=== PATIENT | female | born 1955 | race Caucasian/White ===

== ENCOUNTER → 2023-01-03 | Outpatient (CLI) | payer BC | END | disposition home or self-care (01) | LOC: RAH 15:34 | PROVIDERS: ATTEND Family Medicine | DX: Z12.31 Encounter for screening mammogram for malignant neoplasm of breast (principal) | CPT/HCPCS: 77067 ==

== ENCOUNTER → 2024-05-16 | Outpatient (CLI) | payer BC ==
--- NOTE | 2024-05-16 11:36 | HMCIMG ---
Exam Type: MAMMO SCREENING BILATERAL Clinical Information: ROUTINE SCREENING Comparison: January 03, 2023 Technique: Mammogram with CAD was performed with CC and MLO projections. CAD shows no worrisome regions. FINDINGS: The breasts are heterogeneously dense, which may obscure small masses. No dominant mass or suspicious microcalcification identified. There is no nipple retraction or skin thickening. Benign-appearing calcifications are seen. CAD shows no worrisome regions. IMPRESSION: 1. No mammographic signs of malignancy. 2. Routine follow-up recommended. CATEGORY 2: BENIGN FINDINGS Note: A negative x-ray should not delay biopsy if a dominant or clinically suspicious mass is present, since 8-10% of cancers are not identified by mammography. Dense breasts may obscure an underlying neoplasm.
== END | disposition home or self-care (01) ==
LOC: RAH 10:27
PROVIDERS: ATTEND Family Medicine
DX: Z12.31 Encounter for screening mammogram for malignant neoplasm of breast (principal); R92.333 Mammographic heterogeneous density, bilateral breasts
CPT/HCPCS: 77067